=== PATIENT | male | born 1985 ===

== ENCOUNTER 2025-04-24 10:30 | Emergency (ER) | payer OTHER ==
[~2025-04-24] VITALS: Ht 182.9 cm; Wt 108.9 kg
[2025-04-24] MEDS ORDERED: CLONAZEPAM0.125 MG PO (10:35)
[2025-04-24] MEDS ORDERED: LIDOCAINE HCL 1% 10ML VIAL ONE (10:51)
[2025-04-24] MEDS ORDERED: CEFTRIAXONE SODIUM 1,000 MG VIAL IM STA (11:43)
[2025-04-24] MEDS ORDERED: DEXAMETHASONE SODIUM PHOSPHATE 4 MG/ML VIAL IM STA (11:44)
[2025-04-24] MEDS ORDERED: TETANUS & DIPHTHERIA TOX,ADULT 0.5 ML VIAL IM ONE (11:45)
[2025-04-24] MEDS ORDERED: DIPHTH,PERTUSS(ACELL),TET VAC 0.5 ML SYRINGE IM ONE (12:02)
[2025-04-24] MEDS ORDERED: DEXAMETHASONE SODIUM PHOSPHATE 4 MG/ML VIAL ONE (12:02)
[2025-04-24] MEDS ORDERED: CEFTRIAXONE SODIUM 1,000 MG VIAL ONE (12:02)
== END 2025-04-24 10:36 | disposition left against medical advice (07) ==
LOC: ER 10:31
DX: S41.112A Laceration without foreign body of left upper arm, initial encounter (principal); Y08.89XA Assault by other specified means, initial encounter; Y93.89 Activity, other specified; Y92.89 Other specified places as the place of occurrence of the external cause; Y99.8 Other external cause status
CPT/HCPCS: 90471; 90714; J1670